=== PATIENT | female | born 2000 | race Two or more races ===

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

== ENCOUNTER 2024-04-02 08:05 | Day surgery (SDC) | payer MEDICAID ==
[~2024-04-02] VITALS: Ht 162.6 cm; Wt 120.2 kg
[~2024-04-02 08:05] MED LIST: METF-370 PO
[2024-04-02] MEDS ORDERED: fentaNYL CITRATE 100 MCG/2 ML VL IV ONE (08:06)
[2024-04-02] MEDS ORDERED: ceFAZolin 2 GM/D5W50ml 50 ML IV ONE (10:29)
[2024-04-02] MEDS ORDERED: HYDROmorphone HCL 2 MG/ML VL/or syr ONE ×2 (11:44→15:40)
[2024-04-02] MEDS ORDERED: KETAMINE 50mg/ML 1ml syringe ONE (11:44)
[2024-04-02] MEDS ORDERED: fentaNYL CITRATE 100 MCG/2 ML VL ONE (11:44)
[2024-04-02] MEDS ORDERED: KETOROLAC TROMETH 30 MG/ML 1ML VIAL ONE (11:45)
[2024-04-02] MEDS ORDERED: DexAMETHasone SOD PHOS 10MG/1ML VIAL INJ ONE (11:45)
[2024-04-02] MEDS ORDERED: LIDOCAINE 2% (LOCAL ANESTH.) PF 5ml SDV ONE (11:45)
[2024-04-02] MEDS ORDERED: ePHEDrine SULFATE 50 MG/ML AMP ONE (11:45)
[2024-04-02] MEDS ORDERED: PROPOFOL 10 MG/ML 20 ML IV ONE (11:45)
[2024-04-02] MEDS ORDERED: GLYCOPYRROLATE 0.2 MG/ML 1ML VIAL ONE (11:45)
[2024-04-02] MEDS ORDERED: ONDANSETRON HCL 4 MG/2 ML VIAL ONE (11:45)
[2024-04-02] MEDS ORDERED: MIDAZOLAM HCL 2MG/2ML 2ml VIAL (1mg/ml) ONE (11:45)
[2024-04-02] MEDS ORDERED: HYDR1TAB97 PO (13:26)
[2024-04-02] MEDS ORDERED: CEPH500C PO (13:27)
[2024-04-02] MEDS ORDERED: APIX2.5T PO (13:27)
[2024-04-02] MEDS: EPINEPHrine HCL 1 MG/1 ML AMP ONE (14:19)
[2024-04-02 14:50] VITALS: TEMP 97.6; O2SAT 100
[2024-04-02] MEDS: HYDROmorphone HCL 2 MG/ML VL/or syr IV PRN (15:35)
[2024-04-02] MEDS ORDERED: HYDROcodone-ACET 5/325MG TAB PO ONE (15:45)
[2024-04-02] MEDS ORDERED: ONDANSETRON HCL 4 MG/2 ML VIAL IV ONE (15:45)
[2024-04-02 16:00] VITALS: BP 147/85; PULSE 101; RESP 19; O2SAT 97
== END 2024-04-02 16:09 | disposition home or self-care (01) ==
LOC: SUR 08:05
PROVIDERS: ATTEND Orthopaedic Surgery Sports Medicine
DX: S93.431A Sprain of tibiofibular ligament of right ankle, initial encounter (principal); M25.871 Other specified joint disorders, right ankle and foot; M65.871 Other synovitis and tenosynovitis, right ankle and foot; L90.5 Scar conditions and fibrosis of skin; G89.29 Other chronic pain; X58.XXXA Exposure to other specified factors, initial encounter; Y93.89 Activity, other specified; Y92.89 Other specified places as the place of occurrence of the external cause; Y99.8 Other external cause status; E28.2 Polycystic ovarian syndrome; F12.90 Cannabis use, unspecified, uncomplicated; E66.9 Obesity, unspecified; Z68.42 Body mass index [BMI] 45.0-49.9, adult; Z79.84 Long term (current) use of oral hypoglycemic drugs
CPT/HCPCS: 27695; 29897; 73600; C1713; J0171; J0690; J1100; J1170; J1885; J2001; J2250; J2405; J2704; J3010; 76000